=== PATIENT | male | born 1955 | race Caucasian/White ===

== ENCOUNTER 2020-10-01 20:08 | Day surgery (SDCO) | payer OTHER ==
[2020-10-01] MEDS ORDERED: NORVASC5 MG PO (21:09)
[2020-10-01] MEDS ORDERED: ASPIRIN EC81 MG PO (21:10)
[2020-10-01] MEDS ORDERED: LIPITOR40 MG PO (21:11)
[2020-10-01] MEDS ORDERED: COREG25 MG PO (21:11)
[2020-10-01] MEDS ORDERED: NOVOLOG MI100 UNIT/3 SC ×2 (21:12→21:14)
[2020-10-01] MEDS ORDERED: PRILOSEC20 MG PO (21:12)
[2020-10-02 05:58] LABS: BASOPHIL 0.1 % (0-2); EOSINOPHIL 0.4 % (0-5); HCT 41.5 % (42.0-52.0); LYMPHOCYTE 13.1 % (15-48); MCHC 33.7 g/dL (32.0-36.0); MCV 86.1 fL (78.0-100.0); MONOCYTE 6.6 % (0-12); MPV 10.8 fL (6.0-9.5); NEUTROPHIL 79.3 % (41-80); NRBC 0; PLT 206 K/uL (150-400); RBC 4.82 M/uL (4.70-6.00)
[2020-10-02 06:15] LABS: BUN/CREAT RATIO (CALC) 15.4 RATIO; CREATININE 1.75 mg/dL (0.67-1.17); POTASSIUM 4.2 mmol/L (3.5-5.1)
[2020-10-03 05:26] LABS: BASOPHIL 0.2 % (0-2); EOSINOPHIL 1.4 % (0-5); HCT 36.7 % (42.0-52.0); HGB 12.2 g/dl (13.2-18.0); LYMPHOCYTE 27.9 % (15-48); MCH 29.3 pg (25.0-31.0); MCHC 33.2 g/dL (32.0-36.0); MONOCYTE 7.9 % (0-12); MPV 10.9 fL (6.0-9.5); NEUTROPHIL 62.1 % (41-80); NRBC 0; PLT 173 K/uL (150-400); RBC 4.17 M/uL (4.70-6.00); WBC 6.2 K/uL (4.0-10.5)
[2020-10-03 05:42] LABS: ALBUMIN 2.4 g/dL (3.4-5.0); BILIRUBIN - TOTAL 0.5 mg/dL (0.2-1.0); BUN/CREAT RATIO (CALC) 16.9 RATIO; CREATININE 2.01 mg/dL (0.67-1.17); GLOBULIN (CALCULATION) 2.8 g/dL; POTASSIUM 3.6 mmol/L (3.5-5.1); TOTAL PROTEIN 5.2 g/dL (6.4-8.2)
[2020-10-04 05:48] LABS: BASOPHIL 0.1 % (0-2); EOSINOPHIL 0.3 % (0-5); HCT 37.1 % (42.0-52.0); HGB 12.2 g/dl (13.2-18.0); LYMPHOCYTE 7.9 % (15-48); MCH 29.1 pg (25.0-31.0); MCHC 32.9 g/dL (32.0-36.0); MCV 88.5 fL (78.0-100.0); MONOCYTE 5.3 % (0-12); MPV 10.8 fL (6.0-9.5); NEUTROPHIL 85.9 % (41-80); NRBC 0; PLT 171 K/uL (150-400); RBC 4.19 M/uL (4.70-6.00); RDW 11.9 % (11.5-14.0); WBC 7.3 K/uL (4.0-10.5)
[2020-10-04 06:03] LABS: BUN/CREAT RATIO (CALC) 15.6 RATIO; CREATININE 1.8 mg/dL (0.67-1.17); MAGNESIUM 1.9 mg/dL (1.8-2.4); POTASSIUM 4.7 mmol/L (3.5-5.1)
[2020-10-04] MEDS ORDERED: NORCO 5-325 TA1 EACH PO (12:57)
[2020-10-04] MEDS ORDERED: ONDANSETRON ODT4 MG PO (12:57)
--- NOTE | 2020-10-04 14:42 | NUR ---
Discharged to home. No needs at this time.
== END 2020-10-04 15:47 | disposition home or self-care (01) ==
LOC: FMS 20:08
PROVIDERS: Nurse Practitioner; ADMIT Internal Medicine
DX: K80.64 Calculus of gallbladder and bile duct with chronic cholecystitis without obstruction (principal); I16.1 Hypertensive emergency; I12.9 Hypertensive chronic kidney disease with stage 1 through stage 4 chronic kidney disease, or unspecified chronic kidney disease; E11.22 Type 2 diabetes mellitus with diabetic chronic kidney disease; N18.30 Chronic kidney disease, stage 3 unspecified; N17.9 Acute kidney failure, unspecified; E11.40 Type 2 diabetes mellitus with diabetic neuropathy, unspecified; K21.9 Gastro-esophageal reflux disease without esophagitis; F17.290 Nicotine dependence, other tobacco product, uncomplicated; R07.89 Other chest pain; K25.9 Gastric ulcer, unspecified as acute or chronic, without hemorrhage or perforation; Z79.4 Long term (current) use of insulin; Z79.82 Long term (current) use of aspirin; Z79.899 Other long term (current) drug therapy; Z20.828 Contact with and (suspected) exposure to other viral communicable diseases
CPT/HCPCS: 36415; 71045; 76705; 80048; 80053; 80061; 82962; 83735; 84484; 85025; 85610; 85730; 93005; C9113; G0378; J0360; J0780; J1170; J1650; J1885; J1980; J2250; J2270; J2370; J2405; J2543; J2550; J2704; J2710; J3010; J3480; J7120; U0002